=== PATIENT | male | born 1970 | race Caucasian/White ===

== ENCOUNTER → 2021-03-01 | Outpatient (CLI) | payer OTHER ==
[~2021-03-01] MED LIST: GADOTERATE 5 MMOL/10ML VIAL. INT ART ONE; IOHEXOL 300 MG/ML 50 ML VIAL. INT ART ONE; LIDOCAINE 1% Multi-Dose 20 ML VIAL. ID ONE
--- NOTE | 2021-03-01 16:54 | KCIC ---
FLUOROSCOPICALLY GUIDED RIGHT SHOULDER ARTHROGRAM 1. INDICATION: The patient is a 50 years old Male who presented with right shoulder pain and decreas ed range of motion. 2. CONSENT: The risks, benefits, treatment options, potential complications and personnel to be invo lved were discussed (including the risks of radiation exposure, instruments to be used, contrast and anesthesia administration) with the patient. All questions were answered and consent was obtained. Th e patient indicated willingness to proceed. 3. GENERAL: a) Medication Reconciliation: The patient's medications and allergies were reviewed in the [facility] medical record and reconciled to the proposed procedure/treatment. Pre-procedure Sign-in: Safety Checklist Performed Yes b) Positioning: The patient was placed Supine on the fluoroscopy table. c) The shoulder was then sterilely prepped and draped. d) Time Out: A time out was performed immediately prior to procedure start with the nursing, anesthes ia and interventional team, correctly identifying the patient name, date of , procedure, anatomy (including marking of site and side), patient position, procedure consent form, relevant diagnostic and radiology test results, antibiotic administration, safety precautions, and procedure-specific equ ipment needs. Procedure Start Time / Timeout Time: 14:56 e) Anesthesia Type: Local anesthesia: 3 mL 1% Lidocaine 4. PROCEDURE: a) Procedure Details: A 20g spinal needle was inserted into the shoulder joint. 3 mL Omnipaque 300 w as injected to confirm intra-articular placement of needle. Contrast was observed to flow into the in tra-articular space of the joint without significant resistance. 12 mL of injectate was administered into the joint. The needle was removed. Images were stored to the permanent digital archive documenti ng needle position. b) Injectate Contents: 0.2 mL Clariscan 20 mL Normal Saline c) Estimated Blood Loss: 0 mL RADIATION DOSE: Fluoroscopic Radiation Summary: Fluoroscopy Time: 0:08 min:sec Number of Images: 1 POST PROCEDURE: a) Hemostasis: Hemostasis was achieved using light manual compression. b) Sign-out: Communication Performed Yes c) Procedure End Time: 15:06 d) Conclusion: The patient was discharged from the radiology department in stable condition. COMPLICATIONS: a) Significant Patient Complication: None If other, explain: b) Complications during the procedure: None If other, explain: 5. RESULTS: Contrast was injected into the joint. 6. IMPRESSION: SUCCESSFUL FLUOROSCOPICALLY GUIDED ARTHROGRAM OF THE RIGHT SHOULDER DESCRIBED ABOVE. Electronically signed by: Jeromy Rollins DO (03/01/2021 4:52 PM) [id number]
--- NOTE | 2021-03-01 17:03 | KCIC ---
EXAMINATION: MR ARTHROGRAM RIGHT SHOULDER CLINICAL HISTORY: Right shoulder pain, decreased ROM, pain w/certain arm movements. TECHNIQUE: MRI shoulder arthrogram protocol. Procedural portion of the arthrogram reported separately . COMPARISON: None FINDINGS: LABRUM: Posterior and anterior inferior labral degeneration with degenerative tearing in the anterior -inferior labrum. TENDONS: - Supraspinatus: Intact. - Infraspinatus: Intact. - Subscapularis: Intact. - Teres minor: Intact. - Biceps Tendon: Long head biceps tendon intact and appropriately located. MUSCLES: Rotator cuff muscle bulk and signal intensity within normal limits. GLENOHUMERAL JOINT: No full-thickness chondral defect visualized. ACROMIOCLAVICULAR JOINT: Within normal limits. BONES/MARROW: No evidence of acute fracture or suspicious marrow replacing process. IMPRESSION: Labral degeneration and degenerative tearing as described. No full-thickness rotator cuff tear. Electronically signed by: Jeromy Rollins DO (03/01/2021 5:01 PM) [id number]
== END ==
LOC: KCIC 14:19
PROVIDERS: ATTEND Family Medicine
DX: S43.431A Superior glenoid labrum lesion of right shoulder, initial encounter (principal); M25.511 Pain in right shoulder; Z79.899 Other long term (current) drug therapy; X58.XXXA Exposure to other specified factors, initial encounter; Y93.89 Activity, other specified; Y92.89 Other specified places as the place of occurrence of the external cause; Y99.8 Other external cause status
CPT/HCPCS: 23350; 73222; 77002; A9575; J3490; Q9967

== ENCOUNTER → 2021-04-02 | Outpatient (CLI) | payer OTHER ==
--- NOTE | 2021-04-02 09:35 | KCIC ---
EXAM: MRI CERVICAL SPINE WITHOUT CONTRAST. HISTORY: Neck pain. Headaches. Right upper extremity radiculopathy. Remote cervical injury. TECHNIQUE: Magnetic resonance images of the cervical spine were obtained without contrast. COMPARISON: None. FINDINGS: Alignment is normal. No fractures are identified. Degenerative disc disease is moderate at C4-5 and C6-7 and mild at C3-4 and C5-6. The craniocervical junction is unremarkable. There is no abn ormal cord signal. At C2-3, there is no stenosis. At C3-4, there is a moderate posterior disc-osteophyte complex with a superimposed moderate right par acentral/foraminal protrusion. This abuts the right anterior cord with mild flattening. Minimal anter oposterior central canal diameter is 7 mm indicating moderate central canal stenosis. There is more s evere right lateral recess stenosis. Uncovertebral osteoarthritis is mild on the left and severe on t he right. Neural foraminal stenosis is moderate on the left and severe on the right. At C4-5, there is a small posterior disc-osteophyte complex. This is largest in the right paracentral territory, with mild flattening of the right anterior cord and more severe right lateral recess sten osis. Minimal anteroposterior central canal diameter is 8 mm, consistent with mild to moderate centra l canal stenosis. Uncovertebral osteoarthritis is severe on the right and moderate on the left. Neura l foraminal stenosis is mild on the left and moderate to severe on the right. At C5-6, there is a moderate posterior disc-osteophyte complex. Central canal stenosis is mild with m inimal anteroposterior central canal diameter 9 mm. There is no significant mass effect on the cord. Uncovertebral osteoarthritis is moderate to severe on the left greater than right. Neural foraminal s tenosis is moderate bilaterally. At C6-7, there is a moderate posterior disc-osteophyte complex with a superimposed left paracentral/f oraminal protrusion. Uncovertebral osteoarthritis is severe on the left and moderate on the right. Ne ural foraminal stenosis is moderate to severe on the left and moderate on the right. IMPRESSION: 1. Posterior moderate central canal stenosis from C3 through C5 with more severe right lateral recess stenosis. Central canal stenosis is mild from C5 through C7. 2. Diffuse uncovertebral osteoarthritis results in moderate to severe multilevel bilateral neural for aminal stenosis as above. 3. Mild to moderate degenerative disc disease from C3 through C7. Electronically signed by: Sammy Mckeon MD (04/02/2021 9:33 AM) [id number]
== END ==
LOC: KCIC MRI 07:59
PROVIDERS: ATTEND Family Medicine Sports Medicine
DX: M50.13 Cervical disc disorder with radiculopathy, cervicothoracic region (principal); M48.02 Spinal stenosis, cervical region; M25.78 Osteophyte, vertebrae
CPT/HCPCS: 72141

== ENCOUNTER 2021-05-21 10:34 | Day surgery (SDC) | payer OTHER ==
[~2021-05-21] VITALS: Ht 185.4 cm; Wt 85.0 kg
[~2021-05-21 10:34] MED LIST changes: +ASPI1TAB31 PO; +BUPIVACAINE-EPI 0.25% 30 ML VIAL KIT. ONE; +EPINEPHrine VIAL 30 MG/30 ML VIAL ONE; +GABA600T7 PO; -GADOTERATE 5 MMOL/10ML VIAL. INT ART ONE; +HYDROmorphone 2 MG/ML VIAL IVP PRN; -IOHEXOL 300 MG/ML 50 ML VIAL. INT ART ONE; +IV RINGERS,LACTATED 1000ML 1,000 ML IV SCH; -LIDOCAINE 1% Multi-Dose 20 ML VIAL. ID ONE; +MORPHINE SULFATE 2 MG/ML INJ. IVP PRN; +OMEP20TA63 PO; +PROCHLORPERAZINE 10 MG/2 ML VIAL. IVP PRN; +RIZA10TA PO; +fentaNYL PF VIAL 100 MCG/2 ML VIAL IVP PRN
[2021-05-21 11:11] VITALS: BP 150/96
[2021-05-21] MEDS ORDERED: MIDAZOLAM HCL/PF 2 MG/2 ML VIAL. ONE (11:39)
[2021-05-21] MEDS ORDERED: FAMOTIDINE 20 MG/2 ML VIAL ONE (11:39)
[2021-05-21] MEDS ORDERED: ROPIVacaine 0.5% PF 20 ML VIAL. ONE (11:39)
[2021-05-21] MEDS ORDERED: DEXAMETHASONE SOD PHOS 4 MG/ML VIAL ONE (11:47)
[2021-05-21] MEDS ORDERED: ONDANSETRON PF 4 MG/2 ML VIAL. ONE (11:47)
[2021-05-21] MEDS ORDERED: SEVOFLURANE 61 TO 120 MINUTES. IH ONE (11:47)
[2021-05-21] MEDS ORDERED: PROPOFOL 10 MG/ML (20ML) VIAL. IV ONE (11:47)
[2021-05-21] MEDS ORDERED: LIDOCAINE 2% PF 5 ML VIAL. ONE (11:47)
[2021-05-21] MEDS ORDERED: fentaNYL PF VIAL 100 MCG/2 ML VIAL ONE (11:48)
[2021-05-21] MEDS ORDERED: SUCCINYLCHOLINE 200 MG/10 ML VIAL. ONE (11:48)
--- NOTE | 2021-05-21 13:19 | PDOC4 ---
OPERATIVE NOTE Date: Date: May 21, 2021 Pre-Op Diagnosis: Impingement AC arthrosis labral tear right shoulder Post-Op Diagnosis: Same Procedure Performed: Right shoulder arthroscopy with labral debridement subacromial decompression distal clavicle resection bursectomy Surgeon: Jesika Anesthesia Type: General Blood Loss: 20 cc Specimans Obtained: None Findings: See dictation Complications: None MARE GALARZA Jr., DO May 21, 2021 13:19
[2021-05-21] MEDS ORDERED: HYDR-3070 PO (13:21)
--- NOTE | 2021-05-21 13:34 | DISCH ---
DISCHARGE INSTRUCTIONS Condition on Discharge Condition on Discharge: Stable Activity After Discharge Activity Instructions for Disc: Activity as tolerated Lifting Instructions after Dis: No pulling or pushing Driving Instructions after Dis: Do not drive today Wound Incision Care Wound/Incision Care: Ice to area for comfort Other wound/incision instructi: May change dressings postoperative day #3 to waterproof Band-Aids Follow-Up Follow up with: 10 to 14 days MARE GALARZA Jr. DO May 21, 2021 13:34
--- NOTE | 2021-05-21 14:00 | OP ---
DATE OF SURGERY: 05/21/2021 PREOPERATIVE DIAGNOSES: Impingement, acromioclavicular arthrosis, possible labral tear in the right shoulder. POSTOPERATIVE DIAGNOSES: Peripheral labral tear with impingement, acromioclavicular arthrosis, right shoulder. PROCEDURE: Right shoulder arthroscopy with subacromial decompression, labral debridement and distal clavicle resection. SURGEON: Cabrera Canchola Jr, DO PLATE MAKER: Chase Lou. ANESTHESIA: General. COMPLICATIONS: None. ESTIMATED BLOOD LOSS: 20 mL DESCRIPTION OF PROCEDURE: The patient was taken to the operative suite, given a general anesthetic, placed in the beach chair position. The right shoulder was then prepped and draped in a sterile fashion. Standard posterior portal was established, lateral and anterior portals were established. There was a tearing of the labral tissue from the 1 o'clock to the 4 o'clock position. This was unstable, but was attached to the glenoid itself, it was just a peripheral tear. Therefore, this debridement was undertaken to this area. This was probed around the entire periphery of the labrum and noted to be intact. The biceps tendon was intact and the undersurface of the rotator cuff was noted to be completely intact. The scope was then taken into the subacromial region. Osteophyte was noted anteriorly along the area of the CA ligament, which was resected and released. Then, the subacromial decompression was performed using a bur. After this was done, the anterior portal was redirected into the AC joint and a portion of the undersurface of the clavicle as well as a distal clavicle were resected to decompress this area as well due to the arthritic changes. Rotator cuff was inspected from this area after the bursectomy was completed, no lesions were noted on the rotator cuff from the side of the joint. Therefore, this was thoroughly irrigated and suctioned dry. All instruments were removed. The wounds were reapproximated. Sterile dressing was applied. The patient was then taken from the operative bed to the postoperative bed, taken to the PACU in stable condition. FATUMA LARSEN: Marli TID: [id number]
[2021-05-21 14:03] VITALS: BP 129/78
[2021-05-21] MEDS ORDERED: HYDR-2763 PO (14:50)
== END 2021-05-21 14:38 | disposition home or self-care (01) ==
LOC: SURG 10:34
PROVIDERS: ATTEND Orthopaedic Surgery
DX: M19.011 Primary osteoarthritis, right shoulder (principal); S43.491A Other sprain of right shoulder joint, initial encounter; G47.30 Sleep apnea, unspecified; K21.9 Gastro-esophageal reflux disease without esophagitis; F41.9 Anxiety disorder, unspecified; Z79.82 Long term (current) use of aspirin; Z79.899 Other long term (current) drug therapy; Z72.89 Other problems related to lifestyle; Z98.890 Other specified postprocedural states; X58.XXXA Exposure to other specified factors, initial encounter; Y93.89 Activity, other specified; Y92.89 Other specified places as the place of occurrence of the external cause; Y99.8 Other external cause status
CPT/HCPCS: 29824; 29826; A4556; A4565; A4930; J0171; J0330; J0690; J1100; J2250; J2405; J2704; J2795; J3010; J3490; A4452